=== PATIENT | male | born 1960 | race Caucasian/White ===

== ENCOUNTER 2021-05-24 17:46 | Emergency (ER) | payer OTHER ==
[2021-05-24] MEDS ORDERED: Lidocaine 1% with EPINEPHrine 1:100,000 50 ML MDV INFILT ONE (17:58)
[2021-05-24] MEDS ORDERED: Diphtheria,Pertussis(Acell),Tetanus Vaccine 0.5 ML Syringe IM ONE (18:27)
--- NOTE | 2021-05-24 18:42 | EDM.PDOC ---
ED HPI GENERAL MEDICAL PROBLEM - General Chief Complaint: Skin Complaint Stated Complaint: FISH HOOK IN RING FINGER L HAND Time Seen by Provider: 05/24/21 18:32 Source of Information: Reports: Patient, Custodial Records History Limitations: Reports: No Limitations - History of Present Illness INITIAL COMMENTS - FREE TEXT/NARRATIVE: Rodolfo presents today for complaints of fish hook to the left middle finger. He reports he cut the remaining hook off but did not try to pull the hook out. He denies any other issues or concerns. Tetanus last 2008 Left Finger-Middle Pain Score (Numeric/FACES): 1 - Related Data Allergies Allergy/AdvReac Type Severity Reaction Status Date / Time No Known Allergies Allergy Verified 05/24/21 18:19 Home Meds: Home Meds NK [No Known Home Meds] 05/24/21 [History] Past Medical History - Past Surgical History GI Surgical History: Reports: Hernia, Abdominal, Hernia, Inguinal Musculoskeletal Surgical History: Reports: Shoulder Surgery Social & Family History - Tobacco Use Tobacco Use Status *Q: Never Tobacco User - Caffeine Use Caffeine Use: Reports: Coffee - Alcohol Use Days Per Week of Alcohol Use: 4 Number of Drinks Per Day: 2 Total Drinks Per Week: 8 - Recreational Drug Use Recreational Drug Use: No ED ROS GENERAL - Review of Systems Review Of Systems: See Below Constitutional: Reports: No Symptoms HEENT: Reports: No Symptoms Respiratory: Reports: No Symptoms Cardiovascular: Reports: No Symptoms Endocrine: Reports: No Symptoms GI/Abdominal: Reports: No Symptoms : Reports: No Symptoms Musculoskeletal: Reports: No Symptoms Skin: Reports: Other (puncture wound x 2 to left middle finger from fish hook) Neurological: Reports: No Symptoms Psychiatric: Reports: No Symptoms Hematologic/Lymphatic: Reports: No Symptoms Immunologic: Reports: No Symptoms ED EXAM, SKIN/RASH Exam: See Below Exam Limited By: No Limitations General Appearance: Alert, WD/WN, No Apparent Distress Respiratory/Chest: No Respiratory Distress, No Accessory Muscle Use Peripheral Pulses: 4+: Radial (L), Radial (R) Extremities: Normal Range of Motion, Normal Capillary Refill, Other (pain to left middle finger tip at location of fish hook punture site. CMS intact, ROM intact.) Neurological: Alert, Oriented, CN II-XII Intact, Normal Cognition, Normal Gait, Normal Reflexes, No Motor/Sensory Deficits Psychiatric: Normal Affect, Normal Mood Skin: Warm, Dry, Normal Color, No Rash, Wound/Incision (puncture wound to left middle finger tip, entrance and exit point with one vitor to finger. No bleeding. No loss of sensation, no other injuries or wounds noted. ) Location, Skin: Other (left middle finger tip) Characteristics: Other (puncture wound from fish hook) Associated features: Tenderness Lymphatic: No Adenopathy ED SKIN PROCEDURES - Foreign Body Removal Indication:: Fish hook left middle finger Consent Obtained:: Patient Performing Doctor:: Opal Fox A Foreign Body Other Location Comment:: left middle finger tip Anesthesia Type: Local Anesthesia Other:: lidocaine 1% with epi 0.3ml infiltrated to puncture site Complications:: No Comments:: Local infiltrated to left middle fingertip, hook pushed remaining way through distal finger tip with vitor intact. CMS and ROM intact once hook removed, no difficulty. Patient tolerated well. Course - Vital Signs Last Recorded V/S: Last Vital Signs Temp 36.3 C 05/24/21 18:18 Pulse 65 05/24/21 18:18 Resp 14 05/24/21 18:18 BP 133/88 05/24/21 18:18 Pulse Ox 96 05/24/21 18:18 - Orders/Labs/Meds Meds: Medications Discontinued Medications Generic Name Dose Route Start Last Admin Trade Name Freq PRN Reason Stop Dose Admin Diphtheria/Tetanus/Acell Pertussis 0.5 ml 05/24/21 18:27 05/24/21 18:33 Diphtheria,Pertussis(Acell),Tetanus Vaccine 0.5 Ml Syringe IM 05/24/21 18:28 0.5 ml .ONCE ONE Administration Lidocaine/Epinephrine 1 ml 05/24/21 17:58 05/24/21 18:33 Lidocaine 1% With Epinephrine 1:100,000 50 Ml Mdv INFILT 05/24/21 17:59 1 ml ONETIME ONE Administration Departure - Departure Time of Disposition: 18:42 Disposition: Home, Self-Care 01 Condition: Good Clinical Impression: Fish hook injury of finger of left hand - Discharge Information Instructions: Puncture Wound, [id number] Referrals: PCP,None [Primary Care Provider] - Forms: ED Department Discharge Additional Instructions: You have been evaluated and treated for a fish hook to the left middle finger. Keep the puncture wound clean and dry, avoid dirty work to prevent infection. You may apply bacitracin ointment and a bandage to promote healing. Tetanus updated today. Return for any issues or concerns. Sepsis Event Note (ED) - Evaluation Sepsis Screening Result: No Definite Risk - Focused Exam Vital Signs: Vital Signs Temp Pulse Resp BP Pulse Ox 05/24/21 18:18 36.3 C 65 14 133/88 96 - Assessment/Plan Assessment:: Fish hook injury of finger of left hand Tetanus updated Plan: Patient evaluated and treated for a fish hook to the left middle finger. Keep the puncture wound clean and dry, avoid dirty work to prevent infection. He may apply bacitracin ointment and a bandage to promote healing. Tetanus updated today. Return for any issues or concerns.
== END 2021-05-24 18:52 | disposition home or self-care (01) ==
LOC: JP.ED 17:46
DX: S61.243A Puncture wound with foreign body of left middle finger without damage to nail, initial encounter (principal); Z23 Encounter for immunization; W45.8XXA Other foreign body or object entering through skin, initial encounter
CPT/HCPCS: 90471; 90715; 99283